=== PATIENT | female | born 1995 | race Caucasian/White ===

== ENCOUNTER 2025-01-24 16:35 | Emergency (ER) | payer BC, OTHER ==
[~2025-01-24] VITALS: Ht 157.5 cm; Wt 48.5 kg
[2025-01-24 16:37] VITALS: BP_DIAS 99
[2025-01-24 16:54] LABS: BASOPHILS # (AUTO) 0.1 X10'3 (0-0.2); BASOPHILS % (AUTO) 0.6 % (0-1); EOSINOPHILS # (AUTO) 0.1 X10'3 (0-0.9); EOSINOPHILS % (AUTO) 0.8 % (0-6); HEMATOCRIT 42.6 % (35.0-45.0); HEMOGLOBIN 14.5 g/dl (12.0-16.0); LYMPHOCYTES # (AUTO) 3.1 X10'3 (1.1-4.8); LYMPHOCYTES % (AUTO) 31.5 % (21-51); MEAN CORPUSCULAR HEMOGLOBIN 30.3 PG (27.0-31.0); MONOCYTES # (AUTO) 0.7 X10'3 (0-0.9); MONOCYTES % (AUTO) 7.4 % (2-12); NEUTROPHILS # (AUTO) 5.9 X10'3 (1.8-7.7); NEUTROPHILS % (AUTO) 59.7 % (42-75); PLATELET COUNT 315 X10'3 (140-440); RED BLOOD COUNT 4.78 X10'6 (4.20-5.60); RED CELL DISTRIBUTION WIDTH 13.4 % (11.5-14.5); WHITE BLOOD COUNT 9.9 X10'3 (4.5-11.0)
[2025-01-24 17:15] LABS: ALANINE AMINOTRANSFERASE 23 U/L (12-78); ALBUMIN 4.6 G/DL (3.4-5.0); ALBUMIN/GLOBULIN RATIO 1.6 (1.1-1.5); ALKALINE PHOSPHATASE 76 IU/L (46-116); ANION GAP 9 (8-16); ASPARTATE AMINO TRANSFERASE 12 U/L (10-37); BILIRUBIN,TOTAL 0.3 MG/DL (0.1-1.0); BLOOD UREA NITROGEN 15 MG/DL (7-18); CALCIUM 9.1 MG/DL (8.5-10.1); CHLORIDE 106 MMOL/L (99-107); CREATININE 0.79 MG/DL (0.40-0.90); GLUCOSE 100 MG/DL (70-104); POTASSIUM 3.2 MMOL/L (3.5-5.1); SODIUM 143 MMOL/L (135-145); TOTAL CARBON DIOXIDE 27.9 MMOL/L (24-32); TOTAL PROTEIN 7.5 G/DL (6.4-8.2); eCRCL 80 ML/MIN; eGFR 86 ML/MIN
[2025-01-24 17:23] LABS: PRO BRAIN NATRIURETIC PEPTIDE 34 PG/ML (0-125)
[2025-01-24 19:02] LABS: D-DIMER 0.26 MG/L FEU (0-0.50)
[2025-01-24 19:06] LABS: HCG SERUM QL NEGATIVE
[2025-01-24 19:15] LABS: THYROID STIMULATING HORMONE 1.32 ulU/ml (0.34-4.50)
[2025-01-24] MEDS: potassium Cl 20 mEq SR tablet PO STA (19:29)
[2025-01-24 19:30] VITALS: BP_SYST 102; PULSE 83; RESP 16; TEMP 98.3; O2SAT 99
== END 2025-01-24 19:38 | disposition home or self-care (01) ==
LOC: ER 16:35
DX: R07.89 Other chest pain (principal)
CPT/HCPCS: 36415; 71045; 80053; 83880; 84443; 84484; 84703; 85025; 85379; 93005; 99285